=== PATIENT | male | born 1975 | race Caucasian/White ===

== ENCOUNTER → 2016-04-11 | Outpatient (CLI) | payer OTHER ==
[~2016-04-11] VITALS: Ht 165.1 cm; Wt 67.6 kg
[~2016-04-11] MED LIST: INSULIN HUMAN REGULAR 1,000 UNITS/10 ML VIAL SQ PRN; LACTATED RINGER'S 1000 ML IV SCH; METOPROLOL TARTRATE 25 MG TAB PO PRN; PROPOFOL 200 MG/20 ML AMP IV ONE; SODIUM CHLORID 0.9% 500 ML IV SCH
[2016-04-11 12:40] VITALS: BP 136/90; PULSE 94; RESP 16; TEMP 98.2; O2SAT 99
[2016-04-11 14:15] VITALS: BP 119/73; PULSE 78; RESP 16; O2SAT 100
--- NOTE | 2016-04-12 19:07 | MR ---
cc: RONALD SCHAEFER M.D. DATE: 04/12/2016 DATE OF : 1975. PROCEDURE PERFORMED: Panendoscopy with biopsy and colonoscopy. ENDOSCOPIST: Ronald Schaefer MD. INDICATIONS FOR THE PROCEDURE: Evaluation of belching, abdominal distension and discomfort, rectal bleeding as well. Photographs were taken. PREMEDICATIONS: Administered anesthesiology. MONITORING: Monitoring was accomplished by pulse oximeter, EKG and blood pressure monitor. DESCRIPTION OF THE PROCEDURE IN DETAIL: After informed consent was obtained and procedures, risks and benefits were explained including risks of bleeding, sepsis, perforation, risk of anesthesia, risks of missing lesions, the patient placed in the left lateral position. The video endoscope was inserted in the esophagus under direct visualization. The esophagus appeared to be normal with a normal Z-line. One biopsy was taken for evaluation of microscopic esophagitis. The stomach was entered. The mucosa appeared to be normal in retroflexed view. The cardia and fundus were normal. The antrum and pylorus were normal and the first, second, and third portions of the duodenum were also unremarkable. Random small bowel biopsies were taken to rule out celiac sprue and the scope was gradually withdrawn. The patient was repositioned and colonoscopy was performed using the video colonoscope. The video colonoscope was inserted easily into the rectum and passed all the way to the cecum in the usual fashion. The preparation was excellent. The scope was gradually withdrawn. The mucosa was normal throughout. No space-occupying lesions were seen. There was no evidence of bleeding. In the rectum, I could note several shallow fissures were noted and photographed. These were not actively bleeding. In a retroflexed view, very tiny hemorrhoids were noted. It appears the etiology of the patient's bleeding and discomfort could be due to anal fissures. The scope was straightened and removed. The patient tolerated the procedure well. IMPRESSION: 1. Normal panendoscopy. Small bowel biopsies and esophageal biopsies taken. 2. Colonoscopy was unremarkable except for shallow anal fissures at the anal verge. This is likely the source of his bleeding and discomfort. PLAN: 1. Would recommend Analpram and lidocaine 2% to 5% to the perianal region. 2. Sitz baths may also be helpful. 3. Will discuss the findings with the patient. 4. Followup clinically as an outpatient. MD DENNIS Mcmanus/CRISS /1:54 PM /6:56 PM
== END ==
LOC: HEND 11:50
PROVIDERS: ATTEND Internal Medicine Gastroenterology
DX: K60.2 Anal fissure, unspecified (principal); K64.9 Unspecified hemorrhoids; K62.5 Hemorrhage of anus and rectum; K59.00 Constipation, unspecified; Z83.71 Family history of colonic polyps; R14.0 Abdominal distension (gaseous); R14.2 Eructation
CPT/HCPCS: 00810; 43239; 45378; 88305; J7120